=== PATIENT | male | born 1990 | race African-American/Black ===

== ENCOUNTER 2020-07-13 19:09 | Emergency (ER) | payer SELFPAY ==
[2020-07-13 19:26] VITALS: BP 179/72; PULSE 82; RESP 20; TEMP 35.8; O2SAT 97
--- NOTE | 2020-07-13 20:16 | ED.WOUNDLAC ---
HPI - Wound/Laceration General Chief Complaint: Wound/Laceration Stated Complaint: cyst on jaw Time Seen by Provider: 07/13/20 20:16 Source: patient Mode of arrival: ambulatory Limitations: no limitations History of Present Illness HPI narrative: Patient is a 29-year-old who presents for evaluation of abscess to her right chin. Patient states that he has had an abscess over that area for the past 2 days. He states the abscess started to drain on the drive over to this facility. He denies fever, chills, neck pain. No difficulty breathing. Patient denies history of skin infection. He is not currently taking any antibiotics. Related Data Allergies Allergy/AdvReac Type Severity Reaction Status Date / Time No Known Allergies Allergy Mild Verified 11/17/10 11:15 Review of Systems Review of Systems: Narrative: CONSTITUTIONAL: Denies fever CARDIOVASCULAR: Denies chest pain RESPIRATORY: Denies cough or dyspnea. GASTROINTESTINAL: Denies abdominal pain SKIN: Abscess to right chin area MUSCULOSKELETAL: Denies back pain NEUROLOGIC: Denies headache PMFSH Past Medical History Medical History (Updated 07/13/20 @ 21:00 by Nette Birmingham MD) No pertinent past medical history Social History Social History (Updated 07/13/20 @ 20:57 by Nette Birmingham MD) Smoking status: Current every day smoker Tobacco type: cigars Living arrangements: with family Gender identity (if verbalized by the patient): Male Exam Narrative: Exam Narrative: GENERAL: Awake, alert, conversant HEAD: Normocephalic, atraumatic. EYES: PERRLA and EOMI. ENT: Nares clear, no rhinorrhea or epistaxis. Mucous membranes moist. 1 cm fluctuant abscess to the right posterior chin. Tender, no surrounding erythema. Mildly fluctuant. NECK: Supple. No cervical adenopathy palpated. CHEST: No respiratory distress, breathing even and non labored HEART: Regular rate, sinus rhythm ABDOMEN:Non distended, non tender EXTREMITIES: Normal range of motion. No edema. SKIN: Warm, dry, no rash. NEURO:No focal deficits. Alert and oriented x3 Course Vital Signs Vital signs: Vital Signs Temperature 35.8 C L 07/13/20 19:26 Pulse Rate 82 07/13/20 19: Respiratory Rate 20 07/13/20 19:26 Blood Pressure 179/72 H 11/17/20 19:26 Pulse Oximetry 97 07/13/20 19:26 Temperature 35.8 C L 07/13/20 19:26 Pulse Rate 82 07/13/20 19:26 Respiratory Rate 20 07/13/20 19:26 Blood Pressure 179/72 H 07/13/20 19:26 Pulse Oximetry 97 07/13/20 19:26 Procedures Abscess I/D face: Date of Incision: 07/13/20 Time of Incision: 20:58 Side (if applicable): right Local Anesthetic: lidocaine 1% Amount of anesthesia used (mL): 3 Technique: incised with #11 blade Amount of fluid expressed (mL): 3 Irrigation: Yes Packing used?: none I&D Results: Pus and Blood MDM - Wound/Laceration MDM Narrative Medical decision making narrative: Patient presented for evaluation of right chin abscess. Already partially draining, the abscess was anesthetized, incision and drainage occurred to completely allow for purulent discharge to be removed. Patient do not require packing. No surrounding cellulitis or lymphadenopathy. There is surrounding folliculitis, likely secondary to patient shaving facial hair. Will give a watch point prescription for antibiotics given he does not have a primary care physician. No evidence of airway involvement, no cervical neck edema, no difficulty with flexion or extension. Consistent with simple abscess, mild surrounding folliculitis. Patient then discharged home with family. Differential Diagnosis Differential diagnosis: Likely laceration, abscess, abrasion and other (Folliculitis) Medical Records Attestation: I reviewed the patient's medical records. Discharge Plan Discharge Clinical Impression: Abscess, Folliculitis Patient Disposition: Home, Self-Care Condition: Stable
[2020-07-13 21:17] VITALS: TEMP 36.8
== END 2020-07-13 21:17 | disposition home or self-care (01) ==
PROVIDERS: Emergency Provider Emergency Medicine
DX: L02.01 Cutaneous abscess of face (principal); L73.9 Follicular disorder, unspecified; F17.290 Nicotine dependence, other tobacco product, uncomplicated
CPT/HCPCS: 10060; 99283

== ENCOUNTER 2022-12-31 23:14 | Emergency (ER) | payer OTHER, SELFPAY ==
--- NOTE | ~2022-12-31 | XR_ITS ---
EXAMINATION: XR knee RT min 4V DATE: 01/01/2023 00:38 INDICATION: Anterior right knee pain. Fall. TECHNIQUE: 4 views of right knee were obtained. COMPARISON: None. FINDINGS: Bone alignment is normal. No fracture. Joint spaces are well maintained. There is no knee j oint effusion. IMPRESSION: 1. Normal right knee. Reviewed, dictated and finalized at location A. IMPRESSION: 1. Normal right knee.
[2022-12-31 23:16] VITALS: BP 133/81; PULSE 90; RESP 16; TEMP 36.8; O2SAT 97
--- NOTE | 2023-01-01 01:04 | ED.LOWEXIN ---
HPI - Extremity Injury (Lower) General Chief Complaint: Extremity Injury, Lower Stated Complaint: right ugarte/knee injury Time Seen by Provider: 01/01/23 00:25 Source: patient Mode of arrival: ambulatory Limitations: no limitations History of Present Illness HPI Narrative: Patient is a 32-year-old male who presents ED with report of right knee pain. Patient reports he was roller skating last night for his son's birthday alliance party when he slipped and fell and landed straight down on his right knee. He complains of pain to his right lateral lower knee. Denies any other injuries. Denies any head injury or LOC. Denies numbness or tingling. Patient has not taken anything for pain. Related Data Allergies Allergy/AdvReac Type Severity Reaction Status Date / Time No Known Allergies Allergy Mild Verified 12/31/22 23:15 Review of Systems Review of Systems: CONSTITUTIONAL: Denies fever, chills, or sweats. MUSCULOSKELETAL: See HPI. NEUROLOGIC: Denies tingling, numbness, or weakness. All systems reviewed & are unremarkable except as noted in HPI and below PMFSH Past Medical History Medical History No pertinent past medical history Surgical History Surgical History No pertinent past surgical history Social History Social History Smoking status: Current every day smoker Tobacco type: cigars Living arrangements: with family Gender identity (if verbalized by the patient): Male Exam Narrative: GENERAL: Well appearing, well-nourished, non-toxic, in no acute distress. HEAD: Normocephalic, atraumatic. NECK: Supple. No adenopathy, no masses. RESPIRATORY: Airway patent, respirations nonlabored. Clear to auscultation bilaterally, no rales, rhonchi, wheezing. CARDIOVASCULAR: Regular rate and rhythm without murmurs, rubs, or gallops. Pedal pulses 2+ and equal bilaterally. MUSCULOSKELETAL: Mild limited flexion range of motion of right knee due to pain. Tenderness and mild swelling noted to inferior lateral right anterior knee. No significant pain along medial or lateral joint lines. No discomfort with ballottement of patella. Sensation intact. SKIN: Warm, dry, normal color. No rashes. NEURO: A&O X3. Speech clear. Cranial nerves II-XII grossly intact. Mildly antalgic gait. No ataxic movements. PSYCHIATRIC: Appropriate mood and affect. Normal interaction. Course Vital Signs Vital signs: Vital Signs Temperature 98.2 F 12/31/22 23:16 Pulse Rate 90 12/31/22 23:16 Respiratory Rate 16 12/31/22 23:16 Blood Pressure 133/81 12/31/22 23:16 Pulse Oximetry 97 12/31/22 23:16 Oxygen Delivery Room Air 12/31/22 23:16 Temperature 98.2 F 12/31/22 23:16 Pulse Rate 90 12/31/22 23:16 Respiratory Rate 16 12/31/22 23:16 Blood Pressure 133/81 12/31/22 23:16 Pulse Oximetry 97 12/31/22 23:16 Oxygen Delivery Room Air 12/31/22 23:16 MDM - Extremity Injury (Lower) MDM Narrative Medical decision making narrative: Patient presented to ED with report of right knee pain and injury. Injury is consistent with musculoskeletal etiology. No signs of neurologic or vascular compromise on physical examination. Compartments are soft without signs of compartment syndrome. XR of right knee interpreted by myself without evidence of fracture or dislocation, does possibly show mild joint effusion. Pain is consistent with exam and injury. Patient is felt to be stable for discharge home and further outpatient management and treatment. Will place patient in knee immobilizer and provide naproxen for home. Will provide orthopedic information for follow-up if needed. Given return precautions. Patient agrees with plan. Discharged in stable condition. Medical Records Attestation: I reviewed the patient's medical records. Imaging Data Attes
[2023-01-01] MEDS: IBUPROFEN 400 MG TABLET 800 MG PO (01:25)
== END 2023-01-01 01:41 | disposition home or self-care (01) ==
PROVIDERS: Emergency Provider Physician Assistant
DX: S86.911A Strain of unspecified muscle(s) and tendon(s) at lower leg level, right leg, initial encounter (principal); F17.200 Nicotine dependence, unspecified, uncomplicated; V00.121A Fall from non-in-line roller-skates, initial encounter; Y93.51 Activity, roller skating (inline) and skateboarding
CPT/HCPCS: 73564; 99283; A9270